=== PATIENT | male | born 1990 | race Two or more races ===

== ENCOUNTER 2018-07-28 22:30 | Emergency (ER) | payer SELFPAY ==
[2018-07-29 00:35] LABS: APPEARANCE,URINE CLEAR; BILIRUBIN,URINE NEGATIVE (NEGATIVE); COLOR,URINE STRAW; GLUCOSE, URINE NEGATIVE (NEGATIVE); KETONES,URINE TRACE mg/dL (NEGATIVE); LEUKOCYTE ESTERASE,URINE NEGATIVE (NEGATIVE); NITRITE,URINE NEGATIVE (NEGATIVE); PROTEIN,URINE NEGATIVE (NEGATIVE); URINE SPECIFIC GRAVITY 1.005; UROBILINOGEN,URINE NEGATIVE mg/dL (<2.0)
[2018-07-29 00:50] LABS: URINE AMPHETAMINES SCREEN NEGATIVE; URINE BARBITURATES SCREEN NEGATIVE; URINE BENZODIAZEPINES SCREEN NEGATIVE; URINE COCAINE SCREEN NEGATIVE; URINE MARIJUANA (THC) SCREEN NEGATIVE; URINE METHADONE SCREEN NEGATIVE; URINE PHENCYCLIDINE SCREEN NEGATIVE
--- NOTE | 2018-07-29 01:17 | ER Document Report ---
ED General - General Chief Complaint: Psych Problem Stated Complaint: PSYCH ISSUES Time Seen by Provider: 07/29/18 00:06 Cannot obtain history due to: Other - Paranoia Notes: Patient is a 27-year-old male with no chronic medical problems by his report although he notes that he has had a psychiatric hospitalization in the past for paranoid delusions who presents tonight stating that he is being followed by is really Secret Service and/or the FBI. 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 He states there were other people that he does not recognize who he felt like were watching him. He states that he feels like there is a car circling around the emergency department and that there might be snipers outside. He states he is afraid to go to sleep "I cannot trust anybody here [place]". History is otherwise limited secondary to the patient's altered mental status secondary to underlying psychosis. TRAVEL OUTSIDE OF THE [place] IN LAST 30 DAYS: No Past Medical History - General Information source: Patient - Social History Smoking Status: Never Smoker Frequency of alcohol use: None Drug Abuse: Marijuana Lives with: Alone Family History: Reviewed & Not Pertinent Patient has suicidal ideation: No Patient has homicidal ideation: No Renal/ Medical History: Denies: Hx Peritoneal Dialysis Review of Systems - Review of Systems Notes: Constitutional: Negative for fever. HENT: Negative for sore throat. Eyes: Negative for visual changes. Cardiovascular: Negative for chest pain. Respiratory: Negative for shortness of breath. Gastrointestinal: Negative for abdominal pain, vomiting or diarrhea. Genitourinary: Negative for dysuria. Musculoskeletal: Negative for back pain. Skin: Negative for rash. Neurological: Negative for headaches, weakness or numbness. 10 point ROS negative except as marked above and in HPI. Physical Exam - Vital signs Vitals: Temp Pulse Resp BP Pulse Ox 97.5 F 95 18 150/70 H 99 07/28/18 22:54 07/28/18 22:54 07/28/18 22:54 07/28/18 22:54 07/28/18 22:54 Interpretation: Hypertensive Notes: PHYSICAL EXAMINATION: GENERAL: Well-appearing, well-nourished and in no acute distress. HEAD: Atraumatic, normocephalic. EYES: Pupils equal round and reactive to light, extraocular movements intact, sclera anicteric, conjunctiva are normal. ENT: nares patent, oropharynx clear without exudates. Moist mucous membranes. NECK: Normal range of motion, supple without lymphadenopathy LUNGS: Breath sounds clear to auscultation bilaterally and equal. No wheezes rales or rhonchi. HEART: Regular rate and rhythm without murmurs ABDOMEN: Soft, nontender, normoactive bowel sounds. No guarding, no rebound. No masses appreciated. EXTREMITIES: Normal range of motion, no pitting or edema. No cyanosis. NEUROLOGICAL: No focal neurological deficits. Moves all extremities spontaneously and on command. PSYCH: Quite paranoid, pacing outside his room. Appears highly anxious, hypervigilant SKIN: Warm, Dry, normal turgor, no rashes or lesions noted. Course - Re-evaluation Re-evalutation: 07/29/18 01:16 Patient presents with paranoid delusions of being followed by the is really Secret Service or FBI. Patient standing outside his room, calm on exam although his eyes are noted to be guarding around the department very rapidly clear that he is very scared or nervous. He states that he does not feel he can trust anybody, cannot trust me, does not trust security. Does not want to go to sleep as he is worried that someone will try to harm him. Relates a history of similar in the past although seems to believe that this was secondary to marijuana use. Patient does admit that he has been using marijuana but states that he has used similar strains of marijuana in the past without becoming paranoid. He is declining any medical intervention at this point. However given the degree of the patient's paranoia that also appears to be impairing his ability to function I have placed him on a precautionary hold. Medical screening exam unremarkable. Medical screening labs pending. He is otherwise cleared for evaluation and disposition by [facility] in the morning. 07/29/18 02:30 Medical screening laboratories reveal a nonspecific leukocytosis otherwise unremarkable. Patient is [facility]. - Vital Signs Vital signs: Temp Pulse Resp BP Pulse Ox 97.5 F 95 18 150/70 H 99 07/28/18 22:54 07/28/18 22:54 07/28/18 22:54 07/28/18 22:54 07/28/18 22:54 - Laboratory Result Diagrams: 07/29/18 01:45 07/29/18 01:45 Laboratory results interpreted by me: 07/29/18 07/29/18 00:05 01:45 WBC 19.4 H Seg Neutrophils % 80.1 H Lymphocytes % 11.8 L Absolute Neutrophils 15.6 H Absolute Monocytes 1.5 H Urine Ketones TRACE H Discharge - Discharge Clinical Impression: Paranoid delusion, Anxiety, Marijuana abuse
[2018-07-29 02:02] LABS: ABSOLUTE BASOPHILS # (AUTO) 0.1 10^3/uL (0.0-0.2); ABSOLUTE LYMPHOCYTES (AUTO) 2.3 10^3/uL (0.5-4.7); ABSOLUTE MONOCYTES (AUTO) 1.5 10^3/uL (0.1-1.4); ABSOLUTE NEUT (AUTO) 15.6 10^3/uL (1.7-8.2); BASOPHILS % (AUTO) 0.4 % (0-2); EOSINOPHILS % (AUTO) 0.1 % (0-6); HEMOGLOBIN 15.4 g/dL (13.5-17.0); LYMPHOCYTES % (AUTO) 11.8 % (13-45); MEAN CORPUSCULAR HEMOGLOBIN 29.4 pg (27.0-33.4); MEAN CORPUSCULAR HGB CONC 35.1 g/dL (32.0-36.0); MEAN CORPUSCULAR VOLUME 84 fl (80-97); MONOCYTES % (AUTO) 7.6 % (3-13); PLATELET COUNT 288 10^3/uL (150-450); RED BLOOD COUNT 5.24 10^6/uL (4.35-5.55); RED CELL DISTRIBUTION WIDTH 13.2 % (11.5-14.0); SEGMENTED NEUTROPHILS % (AUTO) 80.1 % (42-78); TOTAL CELLS COUNTED % (AUTO) 100 %; WHITE BLOOD COUNT 19.4 10^3/uL (4.0-10.5)
[2018-07-29 04:25] LABS: ALANINE AMINOTRANSFERASE 29 U/L (21-72); ALBUMIN 5.4 g/dL (3.5-5.0); ALKALINE PHOSPHATASE 65 U/L (38-126); ANION GAP 15 (5-19); ASPARTATE AMINO TRANSFERASE 49 U/L (17-59); BILIRUBIN,DIRECT 0.3 mg/dL (0.0-0.4); BILIRUBIN,TOTAL 0.4 mg/dL (0.2-1.3); BLOOD UREA NITROGEN 17 mg/dL (7-20); CALCIUM 10.8 mg/dL (8.4-10.2); CARBON DIOXIDE 22 mmol/L (22-30); CHLORIDE 111 mmol/L (98-107); GLUCOSE 100 mg/dL (75-110); POTASSIUM 4.8 mmol/L (3.6-5.0); SODIUM 148.1 mmol/L (137-145); TOTAL PROTEIN 8.3 g/dL (6.3-8.2)
[2018-07-29 04:26] LABS: ACETAMINOPHEN < 10 ug/mL (10-30); ALCOHOL < 10 mg/dL (NONE DETECTED); SALICYLATE < 1.0 mg/dL (2.0-20.0)
--- NOTE | 2018-07-29 06:38 | EKG REPORT ---
SEVERITY:- NORMAL ECG - SINUS RHYTHM : Confirmed by: Slick Del Rio MD 29-Jul-2018 06:37:59
--- NOTE | 2018-07-29 09:38 | ER Document Report ---
Doctor's Note Notes: 07/29/18 09:37 Rounds: Chart reviewed and patient interviewed. Patient is being evaluated for paranoia, delusions, and flights of ideas. No reported history of mental illness. On no medications. Patient still exhibiting paranoid thoughts this morning. Vital signs are all normal. Patient's lab studies were normal with exception of his white count of 19,400 with 80% segs. Patient says he has no signs of infection anywhere. Has multiple scrapes on his arms. Says he was running yesterday. I am going to repeat his CBC. Patient appears to be medically stable for transfer or discharge. Leigh Ann Mixon MD
[2018-07-29 10:12] LABS: ABSOLUTE EOSINOPHILS # (AUTO) 0.1 10^3/uL (0.0-0.6); ABSOLUTE LYMPHOCYTES (AUTO) 2.1 10^3/uL (0.5-4.7); ABSOLUTE NEUT (AUTO) 6.8 10^3/uL (1.7-8.2); BASOPHILS % (AUTO) 0.4 % (0-2); EOSINOPHILS % (AUTO) 0.6 % (0-6); HEMATOCRIT 42.9 % (37.9-51.0); HEMOGLOBIN 15.1 g/dL (13.5-17.0); LYMPHOCYTES % (AUTO) 21.2 % (13-45); MEAN CORPUSCULAR HEMOGLOBIN 29.7 pg (27.0-33.4); MEAN CORPUSCULAR HGB CONC 35.2 g/dL (32.0-36.0); MEAN CORPUSCULAR VOLUME 84 fl (80-97); MONOCYTES % (AUTO) 10.1 % (3-13); PLATELET COUNT 277 10^3/uL (150-450); RED CELL DISTRIBUTION WIDTH 13.3 % (11.5-14.0); SEGMENTED NEUTROPHILS % (AUTO) 67.7 % (42-78); TOTAL CELLS COUNTED % (AUTO) 100 %
[2018-07-29 13:57] VITALS: BP 141/78
--- NOTE | 2018-07-29 15:48 | PSYCHOLOGICAL NOTE ---
Psych Note - Psych Note Date seen by psych provider: 07/29/18 Time seen by psych provider: 12:00 - Collateral from attending nurse at 0711. Evaluation from [id number]. Collateral from Security from [id number]. Continued evaluation with patient from [id number]. Psych Note: Reason for Consult: Psychosis, 24 Hour IVC Petition Contact Permissions: Unknown Patient is a 27 year old male who presented to the ED last evening as a voluntary walk in, pivot documentation noted he was jittery and sweating, medical documentation noted patient presented paranoid with persecutory delusions that the [employer] or FBI was following him, rambled about work/Muslims/CBD Oil (people there he does not recognize and felt like they were watching him), and he was afraid to go to sleep because he can't trust anyone especially since it is a town. He had also stated there was a car circling the ED with snipers outside. UDS is negative for all substances tested. Attending nurse stated patient has not been argumentative and has a good demeanor. She identified last night he thought he heard a dog barking, people drilling through the wall and would only drink bottled water because he was worried people were trying to poison him. She noted he repositioned the bed in h is room and stayed close to the door.She stated he would not sleep or give any kind of personal information. She reported he admitted to having a bad batch of marijuana once in the past, he was paranoid then which resulted in a hospitalization and denied being paranoid now. He refused medications saying he "did not want chemicals being put into his body." This clinician went to assess patient. He was sitting in a chair with tray table at the door/threshold of his room. His breakfast tray was still closed. He said "I need packaged things I can see, then he grabbed the syrup and butter and pointed to a symbol, said he could not drink the milk because it did not have the symbol and he was able to get packaged items last evening." He stated "I am not paranoid I am realistic." He admitted he had bad marijuana a long time ago, it made him paranoid and he went inpatient. He acknowledged "2-3 weeks ago he got bad CBD oil but was not paranoid like that first time." He commented "I need to go to a hospital in [place] that is where my father is and where my social security card is from." When told if hospitalized it would be in [place] he said "as far away from here as possible." He noted he positioned his bed so that he could see the reflective mirror in the hallway to be able to see as much as possible. Security shared information that patient shared. He has only been here in the [facility] 4 months, he worked at a [employer] [place], they told him he needed help and ended up firing him, he walked to [facility] where he left his cell phone (IPhone 6). He needs his cell phone it has all of his numbers in it to include his Uncle who is an commercial real estate attorney in [place]. He said he had been hospitalized in [place] the last time where they gave him medication, something to help with sleep. Security called [facility] who said they did not have an IPhone 6 but a [employer]. Spoke to patient again after Security provided information. He provided the following story: he had been working at the [employer] [place] when at the last 45 minutes of the day someone from [employer] came by, then a [employer], they each came by a couple times but not at the same time. He reported he went to [employer] who told him they could escort him out of the mall when he leaves. 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 He went to [facility] and asked for MH. He said he was then running from a fermin who had been in front of him with a gun. He tried to hide and the fermin followed in his car. He went behind a big trash bin to hide, came out, held his hands up, the fermin in the car started to drive away and patient ran. He commented on the FBI and said was not sure if [employer] had anything to do with it. He reported he was trying to get out of [place], went through a tunnel, ended back towards [place], went to the [place] but it was locked, found a bike and rode it, it was windy and he was seeing people after him the entire time, he knew if he stayed outside he would not survive, made it by the [employer] by [employer], saw eagles or some sort of birds, rode after them, they came to the hospital and he saw it as a sign so followed and came in. He noted he saw a car outside when he was waiting for help. He confirmed he had been running outside, wet, cold and cut up. He mentioned having court Sunday for what sounded like a traffic violation. 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 He provided his own cell phone number: [phone] and asked if we could call it in front of him, did so twice, it rang and rang, he commented "see they have it." Patient was alert and oriented to self, person, place, time and situation (his perspective). No SI/HI comments or gestures were ever made while in the ED. He presented paranoid and endorsed persecutory delusions about the FBI, [employer] and Muslims being after him for selling CBD Oil to [employer]. Thought processes were perseverative with respect to his delusions. Conversational speech was within normal limits for rate, tone and prosody. Intellectual abilities are estimated to be average. Insight, judgment and impulse control were poor as evidenced by psychosis (paranoia and delusions). Diagnosis: 298.9 (F29) Unspecified Psychosis Possible substance induced (CBD Oil) Impression/Plan: Recommendation to complete full IVC. Patient presented paran oid, endorsed persecutory delusions that FBI/[employer] and Muslims were after him for selling CBD Oil to [employer], he had an entire episode last evening where he was scared for his life and trying to run from people that are after him, he would not eat or drink anything unless it was prepackaged/he could see a symbol on package/he had to open it or see it opened, he positioned his hospital bed so he could see reflective mirror to see everything and everyone coming and admitted he had been hospitalized previously for paranoia. Consulted with Dr. Cazares regarding the management and care of patient. ED Physician in agreement with recommendations.
== END 2018-07-29 14:19 ==
LOC: ER 22:30
DX: F22 Delusional disorders (principal); F12.10 Cannabis abuse, uncomplicated
CPT/HCPCS: 36415; 80053; 80307; 81001; 85025; 93005; 93010; 99285